=== PATIENT | male | born 1990 | race African-American/Black ===

== ENCOUNTER 2019-11-14 11:10 | Emergency (ER) | payer BC, OTHER ==
[2019-11-14] MEDS ORDERED: Bupivacaine 0.5% 10 ML VIAL ONE (11:38)
[2019-11-14] MEDS ORDERED: Lidocaine 1% PF 5 ML VIAL ONE (11:38)
[2019-11-14] MEDS ORDERED: Adacel (T-DAP) 0.5 ML SYRINGE ONE (12:01)
--- NOTE | 2019-11-14 13:04 | RAD ---
LEFT INDEX FINGER 3 VIEWS: Date: 11/14/2019 HISTORY: Crush injury to left index finger, left index finger pain. FINDINGS/IMPRESSION: There is a displaced fracture involving the tuft of the distal phalanx of the left index finger. POS: [facility]
[2019-11-14] MEDS ORDERED: Bacitracin 1 PK ONE (14:06)
== END 2019-11-14 14:14 | disposition home or self-care (01) ==
LOC: ERS 11:10
DX: S62.631A Displaced fracture of distal phalanx of left index finger, initial encounter for closed fracture (principal); W20.8XXA Other cause of strike by thrown, projected or falling object, initial encounter
CPT/HCPCS: 11750; 90471; 90715; J2001; J3490